=== PATIENT | male | born 1965 | race Caucasian/White ===

== ENCOUNTER 2016-07-23 14:55 | Inpatient (IN) | payer OTHER ==
[~2016-07-23] VITALS: Ht 177.8 cm; Wt 114.8 kg
[2016-07-29] MEDS ORDERED: FLUTI44I INH (08:45)
[2016-07-29] MEDS ORDERED: OMEP20TA PO (08:58)
[2016-07-29] MEDS ORDERED: BENA25TA3 PO (08:58)
[2016-07-29] MEDS ORDERED: AMLO5TAB2 PO (08:58)
--- NOTE | 2016-08-01 13:36 | MH ---
cc: Maribel JONES M.D. DATE OF ADMISSION: 08/05/2016 ADMISSION DIAGNOSIS Osteoarthritic degeneration with varus deformity right knee, now being admitted for a right total knee arthroplasty. HISTORY OF PRESENT ILLNESS A pleasant 51-year-old male is being admitted today for right total knee arthroplasty due to severe painful osteoarthritic degeneration right knee with varus deformity. OTHER PAST HISTORY He has no medical problems except for some stomach issues which he takes Prilosec. ___ blood pressure medicine for hypertension. PREVIOUS SURGERY Hernia. REVIEW OF SYSTEMS Noncontributory. FAMILY HISTORY Noncontributory. SOCIAL HISTORY Does not smoke or drink. ALLERGIES No known allergies. PHYSICAL EXAMINATION GENERAL: We find a 51-year-old male, well-developed, well-nourished, oriented x3, complains of pain in his right knee. VITAL SIGNS: Blood pressure 120/82, pulse 72 and regular, respirations 16, temperature 98.2, pulse oximetry 98% on room air. HEENT: Eyes PERRLA, EOMI. Ears, nose, mouth clear. NECK: Supple. LUNGS: Clear. HEART: Regular rate. ABDOMEN: Soft. Positive bowel sounds, nontender. EXTREMITIES: Reveals the right knee to be tender, crepitance throughout range of motion, -10 degrees short of full extension and genu varus deformity noted. IMPRESSION AT THIS TIME Severe painful osteoarthritic degeneration with varus deformity right knee. PLAN Admission for right total knee arthroplasty today. The patient understands the procedure well and risks involved, understands the use of Hibiclens scrub and Bactroban preoperatively and was given a prescription for postoperative pain and anticoagulation control in the office. Plans on going home after his stay in the hospital for home health care. MD BRUNA Babb/IWONAL /1:06 PM /1:10 PM
[2016-08-05] MEDS ORDERED: POVIDONE IODINE 5% (ANTISEPSIS KIT) 4 APPLICATIONS EACH NARE PRN (09:00)
[2016-08-05] MEDS ORDERED: INSULIN HUMAN REGULAR 1,000 UNITS/10 ML VIAL SQ PRN (09:00)
[2016-08-05] MEDS ORDERED: VANCOMYCIN 1000 MG/NS 250 ML (for <70 kg) IV SCH ×2 (09:00)
[2016-08-05] MEDS ORDERED: CHLORHEXIDINE GLUCONATE 2 % 1 PACK (2 CLOTHS) TOPICAL PRN (09:00)
[2016-08-05] MEDS ORDERED: LACTATED RINGER'S 1000 ML IV PRN (09:00)
[2016-08-05] MEDS ORDERED: SODIUM CHLORID 0.9% 500 ML IV PRN (09:00)
[2016-08-05] MEDS ORDERED: CHLORHEXIDINE GLUCONATE 4% SOLN 120 ML BTL TOPICAL SCH (09:00)
[2016-08-05] MEDS ORDERED: METOPROLOL TARTRATE 25 MG TAB PO PRN (09:00)
[2016-08-05] MEDS ORDERED: ceFAZolin 2 GM PREMIX 50 ML IV SCH (09:00)
[2016-08-05 09:13] VITALS: BP 134/83; PULSE 62; RESP 18; TEMP 98.1; O2SAT 96
[2016-08-05] MEDS ORDERED: ceFAZolin INJ 1,000 MG VIAL ONE (09:49)
[2016-08-05] MEDS ORDERED: ACETAMINOPHEN 1000 MG/100 ML VIAL IV ONE (10:30)
[2016-08-05] MEDS ORDERED: FAMOTIDINE 20 MG/2 ML VIAL ONE (10:31)
[2016-08-05] MEDS ORDERED: BUPIVACAINE LIPOSOMAL P-ARTICULR SCH ×3 (11:00)
[2016-08-05] MEDS ORDERED: [UNRECOGNIZED DRUG - OTHER] P-ARTICULR SCH ×3 (11:00)
[2016-08-05] MEDS ORDERED: BUPIVACAINE P-ARTICULR SCH ×3 (11:00)
[2016-08-05] MEDS ORDERED: TRANEXAMIC ACID IV SCH ×2 (11:00→14:00)
[2016-08-05] MEDS ORDERED: SODIUM CHLORIDE 0.9% IV SCH ×2 (11:00→14:00)
[2016-08-05] MEDS ORDERED: ceFAZolin INJ 1,000 MG VIAL XX ONE (11:25)
[2016-08-05] MEDS ORDERED: BUPIVACAINE HCL PF 0.5% 30 ML VIAL NERV BLOCK ONE (12:07)
[2016-08-05] MEDS ORDERED: Post-op Orders (for Pharmacy) MISC XX ONE (13:15)
[2016-08-05] MEDS ORDERED: TRANEXAMIC ACID INJ 0 MG in SODIUM CHLORIDE 0.9% INJ 100 ML IV SCH (13:15)
[2016-08-05] MEDS ORDERED: SODIUM CHLORIDE 0.9% FLUSH 5 ML FLUSH IVF PRN (13:15)
[2016-08-05] MEDS ORDERED: ONDANSETRON HCL 4 MG/2 ML VIAL IVP PRN (13:15)
[2016-08-05] MEDS ORDERED: TEMAZEPAM 15 MG CAP PO PRN (13:15)
[2016-08-05] MEDS ORDERED: ACETAMINOPHEN 325 MG TAB PO PRN (13:15)
[2016-08-05] MEDS ORDERED: ACETAMINOPHEN/HYDROcodone 325 MG/7.5 MG TAB PO PRN (13:15)
[2016-08-05] MEDS ORDERED: diphenhydrAMINE HCL 50 MG/ML VIAL IV PRN (13:15)
[2016-08-05] MEDS ORDERED: NALOXONE HCL 0.4 MG/ML AMP IV PRN ×2 (13:15)
--- NOTE | 2016-08-05 13:16 | HHI.FF ---
Face to Face Verification Diagnosis: (1) Status post total right knee replacement Physical Therapy Gait training Knee: Total knee, Protocol: Right, Full weight bearing Canvas Knee Splint: When in bed & 2 pillows btw thighs Nursing RN: 3 days/week x 2 weeks Nursing: Tre teaching, Dressing changes Dressing Changes: Daily dressing change, 4x4s, Gauze, Paper tape I have seen patient Cristian Ballesteros on 08/05/16. My clinical findings support the need for the requested home health care services because: Limited ability to care for self High risk of falls I certify that my clinical findings support that this patient is homebound because: Unsteady gait/balance Maribel Miranda MD August 05, 2016 13:16
[2016-08-05] MEDS ORDERED: WALKER WHEELS/F1 MIS (13:19)
[2016-08-05] MEDS ORDERED: MISC-163 (13:19)
[2016-08-05] MEDS ORDERED: CPMMACHINE (13:19)
[2016-08-05] MEDS ORDERED: fentaNYL CITRATE 250 MCG/5 ML AMP ONE ×2 (13:24→14:09)
[2016-08-05] MEDS ORDERED: *MEPERIDINE 25 MG INJ VIAL PERIprocedural Use ONLY ONE (13:58)
[2016-08-05] MEDS ORDERED: diphenhydrAMINE HCL 25 MG CAP PO PRN (14:00)
[2016-08-05] MEDS ORDERED: DO NOT ADM ANY ANTICOAGULANT DRUGS PRN (14:00)
[2016-08-05] MEDS: MORPHINE SULFATE 30 MG/30 ML PCA IV SCH ×2 (14:05→20:13)
[2016-08-05] MEDS: LACTATED RINGER'S 1000 ML INJ 1,000 ML IV SCH (14:05)
[2016-08-05] MEDS ORDERED: MIDAZOLAM HCL 2 MG/2 ML VIAL ONE (14:10)
[2016-08-05] MEDS ORDERED: *morphine SULFATE 8 MG/ML PERIprocedure ONLY ONE (14:21)
[2016-08-05] MEDS ORDERED: PROPOFOL 200 MG/20 ML AMP IV ONE (14:45)
[2016-08-05] MEDS ORDERED: ePHEDrine/NS 25 MG/5 ML SYR IV ONE (14:45)
[2016-08-05] MEDS ORDERED: NEOSTIGMINE 3 MG/3 ML SYR IV ONE (14:45)
--- NOTE | 2016-08-05 14:45 | RADRPT ---
EXAM DATE/TIME: 08/05/2016 14:07 [place] COMPARISON: No previous studies available for comparison. INDICATIONS : Post op right knee. MEDICAL HISTORY : None. SURGICAL HISTORY : None. ENCOUNTER: Initial ACUITY: 1 day PAIN SCORE: 8/10 LOCATION: Right Knee, FINDINGS: AP and lateral views of the knee following arthroplasty reveals a prosthesis in anatomic alignment. F racture is not appreciated. CONCLUSION: Status post total knee arthroplasty. Bib Hein MD FACR Board Certified Radiologist. This report was verified electronically.
[2016-08-05] MEDS ORDERED: LACTATED RINGER'S 1000 ML INJ 2,000 ML IV ONE (14:46)
[2016-08-05] MEDS ORDERED: ONDANSETRON HCL 4 MG/2 ML VIAL IV PUSH ONE (14:46)
[2016-08-05] MEDS ORDERED: PHENYLEPH/NS 1000 MCG/10 ML SYR IV ONE (14:46)
[2016-08-05 15:45] VITALS: BP 132/80; PULSE 73; RESP 18; TEMP 97.1; O2SAT 95
[2016-08-05 19:30] VITALS: BP 126/80; PULSE 66; RESP 17; TEMP 97; O2SAT 97
[2016-08-05] MEDS: SODIUM CHLORIDE 0.9% FLUSH 5 ML FLUSH IVF SCH (20:14)
[2016-08-05] MEDS: FLUTICASONE PROPIONATE 44 MCG/ACT 10.6 GM INHALER INH SCH (20:14)
[2016-08-05] MEDS: PCA - TOTAL MG MORPHINE DELIVERED PER SHIFT SCH (21:19)
[2016-08-05 23:45] VITALS: BP 116/78; PULSE 80; RESP 18; TEMP 97.7; O2SAT 97
[2016-08-06] MEDS: LACTATED RINGER'S 1000 ML INJ 1,000 ML IV SCH ×3 (01:43→20:29)
[2016-08-06 04:08] VITALS: BP 133/84; PULSE 78; RESP 17; TEMP 98.8; O2SAT 97
[2016-08-06] MEDS: PCA - TOTAL MG MORPHINE DELIVERED PER SHIFT SCH (05:24)
[2016-08-06 07:17] LABS: HEMATOCRIT 36.9 % (39.0-51.0); REVIEW FLAG FINAL
[2016-08-06 08:00] VITALS: BP 129/85; PULSE 81; RESP 19; TEMP 97.8; O2SAT 96
[2016-08-06] MEDS: PANTOPRAZOLE SOD 40 MG DELAYED RELEASE TAB PO SCH (08:23)
[2016-08-06] MEDS: ACETAMINOPHEN/HYDROcodone 325 MG/7.5 MG TAB PO PRN ×4 (08:23→20:24)
[2016-08-06] MEDS: amLODIPine BESYLATE 5 MG TAB PO SCH (08:23)
[2016-08-06] MEDS: SODIUM CHLORIDE 0.9% FLUSH 5 ML FLUSH IVF SCH ×2 (08:24→19:43)
[2016-08-06] MEDS: FLUTICASONE PROPIONATE 44 MCG/ACT 10.6 GM INHALER INH SCH ×2 (09:05→20:25)
--- NOTE | 2016-08-06 11:39 | PD.ORT.PN ---
Subjective Subjective Remarks pt comfortable today. No complaints at present. Objective Vitals Vital Signs Date Time Temp Pulse Resp B/P Pulse Ox O2 Delivery O2 Flow Rate FiO2 08/06/16 08:00 97.8 81 19 129/85 96 08/06/16 05:24 18 08/06/16 05:08 Nasal Cannula 3.00 08/06/16 04:08 98.8 78 17 133/84 97 08/05/16 23:45 97.7 80 18 116/78 97 08/05/16 21:19 16 08/05/16 20:13 18 08/05/16 19:30 97.0 66 17 126/80 97 08/05/16 15:45 97.1 73 18 132/80 95 08/05/16 15:15 97.7 68 19 120/76 97 Nasal Cannula 2 08/05/16 15:00 65 18 114/74 97 Nasal Cannula 2 08/05/16 14:45 70 20 108/65 96 Nasal Cannula 3 08/05/16 14:30 67 20 104/63 93 Nasal Cannula 3 08/05/16 14:15 98.3 74 22 114/69 95 Nasal Cannula 3 08/05/16 14:05 16 08/05/16 14:00 82 26 119/64 93 Nasal Cannula 3 08/05/16 13:57 96.4 83 26 122/76 93 Nasal Cannula 3 I/O 08/05/16 08/05/16 08/05/16 08/06/16 08/06/16 08/06/16 07:00 15:00 23:00 07:00 15:00 23:00 Intake Total 1600 ml 698 ml 240 ml Output Total 300 ml 275 ml 700 ml Balance 1300 ml 423 ml -460 ml Intake Oral 440 ml 240 ml IV Total 258 ml Other 1600 ml Output Urine Total 0 ml 275 ml 700 ml Estimated Blood Loss 300 ml # Voids 0 # Bowel Movements 0 0 Result Diagram: 08/06/16 0650 Imaging Last 24 hours Impressions Knee X-Ray 08/05/16 1313 Signed Impressions: Service Date/Time: Friday, August 05, 2016 14:07 - CONCLUSION: Status post total knee arthroplasty. Bib Hein MD Objective Remarks Dressing dry and intact. No calf tenderness. Assessment & Plan Ortho Post Op Day #: 1 Problem List: Assessment and Plan Daily wound care. PT, DC [employer]. Maribel Miranda MD August 06, 2016 11:39
[2016-08-06 12:00] VITALS: BP 131/79; PULSE 83; RESP 18; TEMP 98.2; O2SAT 94
[2016-08-06] MEDS: ENOXAPARIN SODIUM 30 MG/0.3 ML SYRINGE SQ SCH (13:02)
[2016-08-06 16:00] VITALS: BP 140/86; PULSE 91; RESP 18; TEMP 97.8; O2SAT 97
[2016-08-06] MEDS ORDERED: BISACODYL 10 MG SUPP RECTAL PRN (16:00)
--- NOTE | 2016-08-06 16:00 | PD.CONS ---
HPI Service [facility] Hospitalists Consult Requested By Dr. Salo Mrianda Reason for Consult Medical Management Primary Care Physician Mayo Carroll MD Diagnoses: History of Present Illness Mr. Ballesteros is a pleasant 51 y/o male with HTN, GERD, hx of Barretts esophagus and osteoarthritis. He was admitted to [facility] on 08/05/16 for elective right total knee arthroplasty performed by Dr. Miranda. [facility] Hospitalist team was consulted to help manage the pts chronic medical issues. Pt is seen post- operatively and is doing well. Vital signs are stable. Pts Villafuerte catheter has been removed. He is being weaned off supplemental O2. Pain is currently controlled. Denies any chest pain, SOB, abd pain, nausea/vomiting, or dizziness. Review of Systems Constitutional: DENIES: Fever, Chills Respiratory: DENIES: Cough, Shortness of breath Cardiovascular: DENIES: Chest pain, Palpitations Gastrointestinal: DENIES: Abdominal pain, Nausea, Vomiting Genitourinary: DENIES: Hematuria, Dysuria Musculoskeletal: COMPLAINS OF: Joint pain Integumentary: DENIES: Pruritus Neurologic: DENIES: Headache Psychiatric: DENIES: Confusion Past Family Social History Past Medical History HTN Hiatal hernia GERD Stephens's Esophagus Osteoarthritis Fatty Liver Past Surgical History Hernia repair Nasal septal repair in 2016 Reported Medications -Omeprazole 20 Mg Tab 40 Mg PO DAILY -Amlodipine 10 Mg PO DAILY -Flovent Hfa 10.6 GM Inh 44 Mcg/Act Inh 2 Puff INH BID Allergies: Coded Allergies: No Known Allergies (Unverified , 07/29/16) Family History Mother with hx of arthritis Social History Denies any tobacco or illicit drug use Pt drinks 3 beers per week He is Pt works in construction industry Physical Exam Vital Signs Vital Signs Date Time Temp Pulse Resp B/P Pulse Ox O2 Delivery O2 Flow Rate FiO2 08/06/16 12:00 98.2 83 18 131/79 94 08/06/16 08:00 97.8 81 19 129/85 96 08/06/16 05:24 18 08/06/16 05:08 Nasal Cannula 3.00 08/06/16 04:08 98.8 78 17 133/84 97 08/05/16 23:45 97.7 80 18 116/78 97 08/05/16 21:19 16 08/05/16 20:13 18 08/05/16 19:30 97.0 66 17 126/80 97 08/05/16 15:45 97.1 73 18 132/80 95 Physical Exam GENERAL: This is a well-nourished, well-developed patient, in no apparent distress. HEENT: Atraumatic. Normocephalic. No temporal or scalp tenderness. No scleral icterus. Airway patent. NECK: Trachea midline, supple, nontender. CARDIO: Regular. RESP: CTA bilaterally. No wheezes, rales, or rhonchi. ABD: +BS, soft, non-tender, nondistended. EXT: Right knee bandages are c/d/i NEURO: Awake and alert. Motor and sensory grossly within normal limits. Normal speech. Laboratory Laboratory Tests Test 08/06/16 06:50 Hemoglobin 12.1 Hematocrit 36.9 Result Diagram: 08/06/16 0650 Imaging Last Impressions Knee X-Ray 08/05/16 1313 Signed Impressions: Service Date/Time: Friday, August 05, 2016 14:07 - CONCLUSION: Status post total knee arthroplasty. Bib Hein MD Assessment and Plan Problem List: (1) Osteoarthritis of right knee Status: Chronic Plan: - Pt s/p right total knee arthroplasty on 08/05/[address] Miranda - Post-op pain control per Ortho - PT daily - IS - Constipation precautions - Wean off supplemental O2 - DVT prophylaxis with Lovenox - Pt is planned for d/c with HHC/PT at the time of discharge. (2) Hypertension Status: Chronic Plan: - BP is stable on home meds - Monitor (3) GERD (gastroesophageal reflux disease) Status: Chronic Plan: - Cont. PPI Assessment and Plan Patient examined. Assessment and plan formulated with Karen López PA-C. I agree with the above. Pt weaned off oxygen, and comfortable on RA. Pt appeared comfortable. medical team will be available prn. Problem Qualifiers (1) Osteoarthritis of right knee: Qualified Code: M17.11 - Primary osteoarthritis of right knee Karen López August 06, 2016 16:00 Lonny Ruvalcaba DO August 07, 2016 00:32
[2016-08-06 20:00] VITALS: BP 114/65; PULSE 82; RESP 17; TEMP 97.2; O2SAT 95
[2016-08-06] MEDS: DOCUSATE SODIUM 100 MG CAP PO SCH (20:23)
[2016-08-06] MEDS: MAGNESIUM HYDROXIDE SUSP 30 ML CUP PO PRN (20:23)
[2016-08-06] MEDS: MULTIVITAMINS/MINERALS THERAPEUTIC TAB PO SCH (20:23)
[2016-08-07] VITALS: BP 115/72; PULSE 89; RESP 16; TEMP 98.7; O2SAT 92
[2016-08-07] MEDS: ENOXAPARIN SODIUM 30 MG/0.3 ML SYRINGE SQ SCH (01:38)
[2016-08-07 06:29] LABS: REVIEW FLAG FINAL
[2016-08-07] MEDS: ACETAMINOPHEN/HYDROcodone 325 MG/7.5 MG TAB PO PRN (07:33)
[2016-08-07 07:44] VITALS: BP 135/89; PULSE 102; RESP 18; TEMP 100.2; O2SAT 97
--- NOTE | 2016-08-07 07:56 | MP ---
cc: Maribel MIRANDA M.D. DATE OF SURGERY: 08/05/2016 PREOPERATIVE DIAGNOSIS Osteoarthritic degeneration, right knee. POSTOPERATIVE DIAGNOSIS Osteoarthritis degeneration, right knee. SURGERY PERFORMED Right total knee arthroplasty using Consensus components, size 2 x 7.5 mm patella, size 5 femur, size 4 tibia, 10 mm insert and two batches of Briggs blue cement. SURGEON Dr. Miranda FINE UNHAIRER CHENG Franco ANESTHESIA General intubation and block, and 120 cc of Exparel for extra pain control. PROCEDURE After successful induction of anesthesia, the patient is placed on the operating room table in the supine position. The knee is prepped and draped in the usual manner. A tourniquet is inflated at the upper thigh and set to 300 mmHg pressure after exsanguination of the lower extremity. A longitudinal incision is made extending from 3 inches proximal to the superior pole of the patella, across the patella in longitudinal fashion, and down past the insertion of the tibial tubercle into the proximal tibia. The incision is carried down through subcutaneous tissue along the medial aspect of the patella and retinaculum, down through the capsule to expose the knee joint. The patella and patellar tendon are freed up enough to allow the patella to be inverted and retracted off the lateral side of the knee joint. The knee joint is left exposed. Small osteophytes are removed. All soft tissue is removed to allow proper position of the femoral and tibial cutting jig guide. The first femoral jig is then inserted along the distal end of the femur after first measuring to decide whether this is a small, medium, or large component. The notch is then drilled and the tibial cutting guide inserted into the femoral cutting guide, along with the ankle brace to allow for proper measurement of the tibial cutting surface that needed to be resected. Pins are inserted into the tibial cutting jig and femoral cutting jig to hold them in place. An oscillating saw is then used to resect the surface of the tibia. The surface of the tibia is then completely removed using sharp and blunt dissection. The anterior and posterior cuts of the femur are then made as well using an oscillating saw through the cutting guide. All guides are then removed and the varus/valgus angulation cutting guide applied to the femur for proper measurement of the proper amount of valgus. The anterior cutting guide for the femur is then inserted at the anterior femoral cuts made. Next, the first block trial is inserted into the femur to allow for proper condyle drill holes to be made which are then made followed by removal of the bone between the condyles using an oscillating saw as well as the bone removed at the most posterior surface of the condyle. After this, this guide is removed and the chamfer cuts made using the chamfer cutting guide from both anterior and posterior. Next, the femoral trial is then inserted, the tibial surface reflected anterior to expose the tibial surface and a tibial stem guide is inserted after first measuring for a standard, standard plus, large, or large plus surface to be used. After the stem is impacted the trial tibial surface is applied followed by the trial meniscal components. After full range of motion is found with the appropriate length meniscal components varying the patella is prepared by resecting the posterior aspect of the patella using an oscillating saw, inserting a trial. The trial is then removed and the cruciate cutting guide applied using the bur to cut the cruciate cuts. After cruciate cuts are made all trials are removed. The wound is irrigated copiously with antibiotic solution and Water Pik and the actual components inserted into place using Consensus components, size 2 x 7.5 mm patella, size 5 femur, size 4 tibia, 10 mm insert and two batches of Briggs blue cement. After the cement has hardened and the components are found to have full range of motion with no instability, the tourniquet is deflated, total tourniquet time being 5 minutes at 300 mmHg pressure. The tourniquet was only used for cementing. The wound again is irrigated copiously with antibiotic solution. Meticulous hemostasis is achieved with the help of 3 cc of Dane as well. No drain was utilized. The deep fascia was approximated with running #2 Quill. The subcutaneous tissue was approximated using interrupted and running 2-0 and 4-0 Monocryl suture. Steri-Strips, sterile dressing and knee immobilizer were applied. The patient tolerated the procedure well and left the Operating Room in satisfactory condition. ESTIMATED BLOOD LOSS 300 cc. COUNTS Sponge and suture counts were correct. CONDITION The patient tolerated the procedure well and left the operating room in satisfactory condition. The certified surgical tech/first assistant was used for positioning of the patient, holding retractors and helping with the cutting jigs and suturing at the end of the case followed by the dressing and moving the patient to the stretcher. J. MD BRUNA Aaron/DARÍO /1:23 PM /7:33 AM
--- NOTE | 2016-08-07 08:00 | PD.ORT.PN ---
Subjective Subjective Remarks pt comfortable today. No complaints at present.Wants to go home today. Objective Vitals Vital Signs Date Time Temp Pulse Resp B/P Pulse Ox O2 Delivery O2 Flow Rate FiO2 08/07/16 07:44 100.2 102 18 135/89 97 08/07/16 00:00 98.7 89 16 115/72 92 08/06/16 20:00 97.2 82 17 114/65 95 08/06/16 16:00 97.8 91 18 140/86 97 08/06/16 12:00 98.2 83 18 131/79 94 08/06/16 08:00 97.8 81 19 129/85 96 I/O 08/06/16 08/06/16 08/06/16 08/07/16 08/07/16 08/07/16 06:59 14:59 22:59 06:59 14:59 22:59 Intake Total 240 ml 1200 ml 240 ml Output Total 700 ml 100 ml Balance -460 ml 1100 ml 240 ml Intake Oral 240 ml 1200 ml 240 ml Output Urine Total 700 ml 100 ml # Voids 4 1 # Bowel Movements 0 0 0 Result Diagram: 08/07/16 0614 Imaging Last 24 hours Impressions Knee X-Ray 08/05/16 1313 Signed Impressions: Service Date/Time: Friday, August 05, 2016 14:07 - CONCLUSION: Status post total knee arthroplasty. Bib Hein MD Objective Remarks Dressing dry and intact. No calf tenderness. Assessment & Plan Ortho Post Op Day #: 2 Problem List: Assessment and Plan Daily wound care. PT, Home later today with [facility] and PT. Maribel Miranda MD August 07, 2016 08:00
--- NOTE | 2016-08-07 08:04 | HHI.DS ---
Discharge Summary Admission Date August 05, 2016 at 08:11 Discharge Date: August 07, 2016 Admitting Diagnosis Osteoarthritic degeneration right knee Diagnosis: (1) Status post total right knee replacement Diagnosis: Principal Brief History This is a 51 year old male patient CBC/BMP: 08/07/16 0614 Significant Findings Laboratory Tests Test 08/06/16 08/07/16 06:50 06:14 Hemoglobin 12.1 GM/DL 11.2 GM/DL (13.0-17.0) (13.0-17.0) Hematocrit 36.9 % 34.0 % (39.0-51.0) (39.0-51.0) PE at Discharge Dressing dry and intact. No calf tenderness. Hospital Course Patient underwent a right total knee on day of admission and received a course of prophylactic IV antibiotics. Within 23 hours he was started on anticoagulation therapy and began out of bed tolerating food and fluid well. He remained afebrile vital signs stable and neurovascularly intact. He tolerated by mouth pain meds the day after surgery. He received daily wound care and physical therapy and continue to progress well. He became independent on getting himself in and out of bed on postoperative day 2 and was discharged to home in the afternoon of postoperative day 2 in good condition with instructions for home healthcare physical therapy and follow-up in the office. He will continue on anticoagulation therapy at home as well. Pt Condition on Discharge: Good Discharge Disposition: Disch w/ Home Health Serv Discharge Instructions Diet Instructions: As Tolerated, No Restrictions Activities You Can Perform: Full Weight Bearing, Shower Only-No Bath Activities to Avoid: Bathing, Driving Maribel Miranda MD August 07, 2016 08:03
[2016-08-07] MEDS: MULTIVITAMINS/MINERALS THERAPEUTIC TAB PO SCH (09:00)
[2016-08-07] MEDS: SODIUM CHLORIDE 0.9% FLUSH 5 ML FLUSH IVF SCH (09:00)
[2016-08-07] MEDS: MAGNESIUM HYDROXIDE SUSP 30 ML CUP PO PRN (09:00)
[2016-08-07] MEDS: PANTOPRAZOLE SOD 40 MG DELAYED RELEASE TAB PO SCH (09:01)
[2016-08-07] MEDS: DOCUSATE SODIUM 100 MG CAP PO SCH (09:01)
[2016-08-07] MEDS: amLODIPine BESYLATE 5 MG TAB PO SCH (09:01)
[2016-08-07] MEDS: FLUTICASONE PROPIONATE 44 MCG/ACT 10.6 GM INHALER INH SCH (09:02)
[2016-08-07 09:10] VITALS: TEMP 97.6
[2016-08-07] MEDS ORDERED: BACITRACIN OINT 0.9 GM PKT TOP PRN (10:15)
[2016-08-07 11:51] VITALS: O2SAT 96
== END 2016-08-07 12:26 | disposition home health service (06) | DRG 470 ==
LOC: HSDI 08-05 08:11 → N06B 08-05 15:42
PROVIDERS: ADMIT Surgery; ATTEND Surgery
PROC: 0SRC0J9 Replacement of Right Knee Joint with Synthetic Substitute, Cemented, Open Approach (ICD-10-PCS; principal; 2016-08-05 10:33)
DX: M17.11 Unilateral primary osteoarthritis, right knee (principal); K76.0 Fatty (change of) liver, not elsewhere classified; K22.70 Barrett's esophagus without dysplasia; I10 Essential (primary) hypertension; M21.161 Varus deformity, not elsewhere classified, right knee; K21.9 Gastro-esophageal reflux disease without esophagitis; Z79.01 Long term (current) use of anticoagulants
CPT/HCPCS: 73560; 85014; 85018; 86850; 86900; 86901; 94150; C1776; C9290; J0131; J0690; J1200; J1650; J2175; J2250; J2270; J2370; J2405; J2710; J3010; J3370; J7050; J7120; L1830

== ENCOUNTER → 2016-07-29 | Outpatient (CLI) | payer OTHER ==
[~2016-07-29] MED LIST: AMLO5TAB2 PO; AMLO5TAB22 PO; BENA25TA3 PO; BENA25TA8 PO; CPMMACHINE; FLUTI44I INH; MISC-163; OMEP20TA PO; PRIL20CA PO; WALKER WHEELS/F1 MIS
[2016-07-29 09:37] LABS: BLOOD, URINE NEG (NEG); COMMENT (UR) CULT NOT INDICATED; CULTURE IF INDICATED CULT NOT INDICATED; GLUCOSE,URINE NEG (NEG); KETONE, URINE NEG (NEG); MUCUS URINE MOD /lpf (OCC); NITRITE,URINE NEG (NEG); URINE COLOR YELLOW (YELLW/STRAW)
[2016-07-29 09:37] LABS: APTT (PATIENT) 29.2 SEC (24.3-30.1); PROTHROMBIN TIME - PATIENT 10.5 SEC (9.8-11.6)
[2016-07-29 09:39] LABS: AUTOMATED NEUTROPHIL # 5.5 TH/MM3 (1.8-7.7); BASOPHIL # 0.1 TH/MM3 (0-0.2); BASOPHIL % 0.6 % (0.0-2.0); EOSINOPHIL # 0.3 TH/MM3 (0-0.4); EOSINOPHIL % 3.7 % (0.0-4.0); HEMATOCRIT 43.2 % (39.0-51.0); HEMO FLAGS DIFF FINAL; LYMPH % 29.6 % (9.0-44.0); LYMPHOCYTE # 2.8 TH/MM3 (1.0-4.8); MEAN CELL VOLUME 85.8 FL (80.0-100.0); MEAN CORPUSCULAR HGB CONC 33.8 % (32.0-36.0); MONO % 7.2 % (0.0-8.0); NEUT % 58.9 % (16.0-70.0); PLATELET COUNT 326 TH/MM3 (150-450); RED BLOOD COUNT 5.03 MIL/MM3 (4.50-5.90); WHITE BLOOD COUNT 9.3 TH/MM3 (4.0-11.0)
[2016-07-29 10:02] LABS: ALKALINE PHOSPHATASE 67 U/L (45-117); ALT (GPT) 63 U/L (12-78); ANION GAP 9 MEQ/L (5-15); AST (GOT) 16 U/L (15-37); BICARBONATE 27.2 MEQ/L (21.0-32.0); BLOOD UREA NITROGEN 9 MG/DL (7-18); CHLORIDE 104 MEQ/L (98-107); GLOMERULAR FILTRATION RATE 71 ML/MIN (>89); GLUCOSE,FASTING 92 MG/DL (74-99); POTASSIUM 3.4 MEQ/L (3.5-5.1); SODIUM (NA) 140 MEQ/L (136-145); TOTAL BILIRUBIN ADULT 0.6 MG/DL (0.2-1.0)
--- NOTE | 2016-07-29 16:40 | EKG ---
Date Performed: 07/29/2016 Time Performed: 08:26:12 PTAGE: 51 years EKG: Sinus rhythm NORMAL ECG NO PREVIOUS TRACING DOCTOR: Francisco J Payton Interpretating Date/Time 07/29/2016 16:39:24
== END ==
LOC: CPRE 07:54
PROVIDERS: ATTEND Surgery
DX: Z01.810 Encounter for preprocedural cardiovascular examination (principal); Z01.812 Encounter for preprocedural laboratory examination
CPT/HCPCS: 36415; 80053; 81001; 85025; 85610; 85730; 93005